=== PATIENT | female | born 1985 | race African-American/Black ===

== ENCOUNTER 2016-02-20 21:46 | Emergency (ER) | payer MEDICAID ==
[~2016-02-20] VITALS: Ht 172.7 cm; Wt 113.0 kg
[2016-02-20] MEDS ORDERED: TETANUS, DIPHTHERIA, PERTUSSIS VAC/PF 0.5ML (>7YR OLD) IM ONE (22:15)
[2016-02-20] MEDS ORDERED: LIDOCAINE HCL 1% 20ML VIAL (Pyxis) INJ MC ONE (22:15)
[2016-02-20] MEDS ORDERED: BACITRACIN ZINC OINT UDPKT TOP ONE (22:15)
[2016-02-20 22:45] VITALS: BP 140/79
[2016-02-20] MEDS ORDERED: CEPHALEXIN 500MG CAPSULE PO ONE (23:15)
[2016-02-20] MEDS ORDERED: ACETAMINOPHEN WITH CODEINE 300/30MG TABLET PO ONE (23:15)
[2016-02-20] MEDS ORDERED: SULFAMETHOXAZOLE/TRIMETHOPRIM 800/160MG TABLET PO ONE (23:15)
== END 2016-02-20 23:55 | disposition home or self-care (01) ==
LOC: ER 21:48
DX: N76.4 Abscess of vulva (principal); F17.200 Nicotine dependence, unspecified, uncomplicated
CPT/HCPCS: 56405; 99284; A4217; J3490; Z7610; 90715; 99283

== ENCOUNTER 2021-07-12 12:35 | Emergency (ER) | payer MEDICAID, OTHER ==
[~2021-07-12] VITALS: Ht 172.7 cm; Wt 136.0 kg
[2021-07-12 13:01] VITALS: BP 163/93
[2021-07-12] MEDS ORDERED: IBUP-2028 MT (20:41)
[2021-07-12] MEDS ORDERED: CIPR1DRO2 EACH EAR (20:41)
[2021-07-12] MEDS ORDERED: AMOX-494 MT (20:41)
== END 2021-07-12 19:04 | disposition left against medical advice (07) ==
LOC: ER 12:35
DX: Z53.21 Procedure and treatment not carried out due to patient leaving prior to being seen by health care provider (principal)

== ENCOUNTER 2021-07-12 19:39 | Emergency (ER) | payer OTHER ==
[~2021-07-12] VITALS: Ht 172.7 cm; Wt 159.9 kg
[2021-07-12] MEDS ORDERED: CIPR1DRO2 EACH EAR (20:41)
[2021-07-12] MEDS ORDERED: AMOX-494 MT (20:41)
[2021-07-12] MEDS ORDERED: IBUP-2028 MT (20:41)
[2021-07-12 20:58] VITALS: BP 159/68
== END 2021-07-12 21:20 | disposition home or self-care (01) ==
LOC: ER 19:39
DX: H66.93 Otitis media, unspecified, bilateral (principal); H60.93 Unspecified otitis externa, bilateral; Z98.890 Other specified postprocedural states
CPT/HCPCS: 99283

== ENCOUNTER 2021-08-20 16:09 | Emergency (ER) | payer OTHER ==
[~2021-08-20] VITALS: Ht 170.2 cm; Wt 90.0 kg
[~2021-08-20 16:09] MED LIST: AMOX-494 MT; CIPR1DRO2 EACH EAR; IBUP-2028 MT
[2021-08-20 16:18] VITALS: BP 169/90
== END 2021-08-20 18:58 | disposition left against medical advice (07) ==
LOC: ER 16:09
DX: Z53.21 Procedure and treatment not carried out due to patient leaving prior to being seen by health care provider (principal)